=== PATIENT | female | born 1980 | race Two or more races ===

== ENCOUNTER 2020-10-06 18:48 | Inpatient (IN) | payer MEDICAID ==
[~2020-10-06] VITALS: Ht 167.6 cm; Wt 122.1 kg
[2020-10-06] MEDS ORDERED: hydrALAzine 20 MG/ML, 1ML IVPush PRN (22:30)
[2020-10-06] MEDS ORDERED: LACTATED RINGERS 1,000 ML IV SCH (22:30)
[2020-10-06] MEDS ORDERED: ONDANSETRON 2MG/ML, 2ML IVPush PRN (22:30)
[2020-10-06] MEDS: HEPARIN 5,000 UNITS/ML, 1ML SQ SCH (22:30)
[2020-10-06] MEDS: morphine SULFATE 10 MG/ML, 1ML IVPush PRN (22:58)
[2020-10-06 23:05] VITALS: BP 158/89
[2020-10-07 00:10] VITALS: BP 151/84
[2020-10-07] MEDS ORDERED: LACTATED RINGERS 1,000 ML IV SCH (02:30)
[2020-10-07] MEDS: LACTATED RINGERS 1,000 ML IV SCH ×4 (05:38→17:00)
[2020-10-07] MEDS: HEPARIN 5,000 UNITS/ML, 1ML SQ SCH ×3 (05:39→22:30)
[2020-10-07 06:51] LABS: BASOPHILS % (AUTO) 1 % (0-1); EOSINOPHILS % (AUTO) 0 % (1-7); LYMPHOCYTES % (AUTO) 8 % (22-44); MEAN CORPUSCULAR HEMOGLOBIN 16.5 pg (27.0-34.8); MEAN PLATELET VOLUME 8.5 fL (7.4-10.4); MONOCYTES % (AUTO) 4 % (2-9); NEUTROPHILS % (AUTO) 88 % (42-75); PLATELET COUNT 357 x10^3/uL (130-400); RED BLOOD COUNT 4.99 x10^6/uL (3.82-5.3); RED CELL DISTRIBUTION WIDTH 21.7 % (9.6-15.2)
[2020-10-07 07:04] LABS: ANION GAP 9 mmol/L (5-15); CALCIUM 7.5 mg/dL (8.5-10.1); CHLORIDE 106 mmol/L (98-107); CHOLESTEROL, TOTAL 133 mg/dL (140-239); CREATININE 0.79 mg/dL (0.55-1.02); TRIGLYCERIDES 105 mg/dL (50-200); VLDL CHOLESTEROL 21 mg/dL (0-25)
[2020-10-07 07:13] LABS: HDL CHOL % 25 % (28-40); HDL CHOLESTEROL (DIRECT) 33 mg/dL (40-60); LDL CHOLESTEROL,CALCULATED 79 mg/dL (54-169); LDL/HDL RATIO 2.4 (0.5-3.0)
[2020-10-07 07:41] LABS: MEAN CORPUSCULAR HGB CONC 29.7 g/dL (32.4-35.8)
[2020-10-07 07:42] LABS: ANISOCYTOSIS 1+; HYPOCHROMIA 2+; MICROCYTOSIS 2+
[2020-10-07 07:44] LABS: OVALOCYTES 1+; POLYCHROMASIA 1+
[2020-10-07 07:45] LABS: TEAR DROPS 1+
[2020-10-07 07:46] LABS: SPHEROCYTES 1+
[2020-10-07 07:47] LABS: <PLATELET ESTIMATE> ADEQUATE; <PLT MORPHOLOGY> NORMAL PLT MORPH
[2020-10-07 07:58] VITALS: BP 176/84
[2020-10-07] MEDS: morphine SULFATE 10 MG/ML, 1ML IVPush PRN (09:14)
[2020-10-07] MEDS ORDERED: POTASSIUM CHLORIDE 40 MEQ in SODIUM CHLORIDE 0.9% 500 ML IV ONE (11:00)
[2020-10-07] MEDS ORDERED: MAGNESIUM SULFATE PMX 2GM/50ML 50 ML IV ONE (11:00)
[2020-10-07] MEDS: PIPERACILLIN/TAZO 3.375 GM in DEXTROSE 5% 50 ML IV SCH ×2 (12:26→18:41)
[2020-10-07] MEDS ORDERED: ENALAPRILAT 1.25 MG/ML, 2ML IVPush PRN (13:30)
[2020-10-07] MEDS ORDERED: hydrALAzine 20 MG/ML, 1ML IVPush PRN (13:30)
[2020-10-07] MEDS ORDERED: LABETALOL 5MG/ML, 20ML IVPush PRN (13:30)
[2020-10-07 14:00] VITALS: BP 181/100
[2020-10-07 14:31] LABS: INTERNATIONAL NORMALIZED RATIO 1.12 (0.93-1.1); PROTHROMBIN TIME 11.9 Seconds (9.6-11.5)
[2020-10-07 15:17] VITALS: BP 160/99
[2020-10-07] MEDS ORDERED: OMNIPAQUE 350 MG/ML, 100ML BOTTLE ONE (16:41)
[2020-10-07 19:10] VITALS: BP 145/80
[2020-10-08 00:15] VITALS: BP 132/77
[2020-10-08] MEDS: LACTATED RINGERS 1,000 ML IV SCH ×4 (00:21→19:21)
[2020-10-08] MEDS: morphine SULFATE 10 MG/ML, 1ML IVPush PRN (00:21)
[2020-10-08] MEDS: PIPERACILLIN/TAZO 3.375 GM in DEXTROSE 5% 50 ML IV SCH ×3 (01:30→13:33)
[2020-10-08] MEDS: HEPARIN 5,000 UNITS/ML, 1ML SQ SCH ×2 (05:07→13:32)
[2020-10-08 06:08] LABS: MEAN CORPUSCULAR HEMOGLOBIN 16.8 pg (27.0-34.8); MEAN CORPUSCULAR HGB CONC 30.3 g/dL (32.4-35.8); MEAN PLATELET VOLUME 8.5 fL (7.4-10.4); PLATELET COUNT 298 x10^3/uL (130-400); RED CELL DISTRIBUTION WIDTH 21.8 % (9.6-15.2)
[2020-10-08 06:10] LABS: ALANINE AMINOTRANSFERASE 27 U/L (12-78); ANION GAP 7 mmol/L (5-15); CALCIUM 7.5 mg/dL (8.5-10.1); CHLORIDE 106 mmol/L (98-107)
[2020-10-08 06:13] LABS: ALKALINE PHOSPHATASE 138 U/L (45-117); BILIRUBIN,TOTAL 0.5 mg/dL (0.2-1.0); CREATININE 0.59 mg/dL (0.55-1.02); TOTAL PROTEIN 6.8 g/dL (6.4-8.2)
[2020-10-08 06:37] LABS: MONOS#(MANUAL) 0.28 x10^3/uL (0.3-2.7); MONOS% (MANUAL) 1 % (2-9); SEG#(MANUAL) 27.92 x10^3/uL (1.8-6.8); SEGS% (MANUAL) 99 % (42-75)
[2020-10-08 06:38] LABS: <PLATELET ESTIMATE> ADEQUATE; <PLT MORPHOLOGY> NORMAL PLT MORPH; ANISOCYTOSIS 2+; HYPOCHROMIA 2+; MICROCYTOSIS 2+; POLYCHROMASIA 1+
[2020-10-08] MEDS: IRON SUCROSE COMPLEX 100MG/5ML IV SCH (07:38)
[2020-10-08 09:00] VITALS: BP 121/77
[2020-10-08 15:37] VITALS: BP 137/85
[2020-10-08] MEDS ORDERED: MIDAZOLAM 1 MG/ML, 2ML ONE (16:50)
[2020-10-08] MEDS ORDERED: FENTANYL PF 250 MCG/5ML ONE (16:51)
[2020-10-08] MEDS ORDERED: PROMETHAZINE 25 MG/ML, 1ML IVPush PRN (17:00)
[2020-10-08] MEDS ORDERED: LABETALOL 5MG/ML, 20ML IV PRN (17:00)
[2020-10-08] MEDS ORDERED: ONDANSETRON 2MG/ML, 2ML IVPush PRN (17:00)
[2020-10-08] MEDS ORDERED: FENTANYL PF 100 MCG/2ML IV PRN (17:00)
[2020-10-08] MEDS ORDERED: OXYcodone 5 MG/5 ML ORAL.SOL UDC PO PRN (17:00)
[2020-10-08] MEDS ORDERED: HYDROmorphone 1 MG/ML, 1ML INJ IVPush PRN (17:00)
[2020-10-08] MEDS ORDERED: hydrALAzine 20 MG/ML, 1ML IV PRN (17:00)
[2020-10-08] MEDS ORDERED: EPINEPHRINE 1 MG/ML, 1ML ONE (18:49)
[2020-10-08] MEDS ORDERED: BUPIVACAINE/PF 0.5% ONE (18:49)
[2020-10-08] MEDS ORDERED: SUCCINYLCHOLINE 20 MG/ML, 10ML ONE (19:09)
[2020-10-08] MEDS ORDERED: PROPOFOL 10 MG/ML, 20ML ONE (19:09)
[2020-10-08] MEDS ORDERED: DEXAMETHASONE 4 MG/ML, 5ML ONE (19:09)
[2020-10-08] MEDS ORDERED: CEFOTETAN 2 GM ONE (19:09)
[2020-10-08] MEDS ORDERED: OMNIPAQUE 350 MG/ML, 50 ML BOTTLE ONE (19:35)
[2020-10-08] MEDS ORDERED: ROCURONIUM 10MG/ML,5ML ONE (19:40)
[2020-10-08] MEDS ORDERED: ONDANSETRON 2MG/ML, 2ML ONE (19:40)
[2020-10-08] MEDS ORDERED: KETOROLAC 30 MG/1 ML ONE (20:15)
[2020-10-08] MEDS ORDERED: FENTANYL PF 100 MCG/2ML ONE (21:50)
[2020-10-08 23:15] VITALS: BP 138/79
[2020-10-09] VITALS (7 sets, daily range): BP systolic 112–134; BP diastolic 73–84
[2020-10-09] MEDS: PIPERACILLIN/TAZO 3.375 GM in DEXTROSE 5% 50 ML IV SCH ×4 (02:11→21:23)
[2020-10-09] MEDS ORDERED: ONDANSETRON 2MG/ML, 2ML IVPush PRN ×2 (02:30→08:30)
[2020-10-09] MEDS ORDERED: FENTANYL PF 100 MCG/2ML IVPush PRN (02:30)
[2020-10-09] MEDS: LACTATED RINGERS 1,000 ML IV SCH ×2 (03:03→19:30)
[2020-10-09] MEDS: HEPARIN 5,000 UNITS/ML, 1ML SQ SCH ×3 (03:03→21:24)
[2020-10-09 04:56] LABS: MEAN CORPUSCULAR HEMOGLOBIN 17.7 pg (27.0-34.8); MEAN CORPUSCULAR HGB CONC 30.7 g/dL (32.4-35.8); MEAN PLATELET VOLUME 8.8 fL (7.4-10.4); PLATELET COUNT 272 x10^3/uL (130-400); RED BLOOD COUNT 4.13 x10^6/uL (3.82-5.3); RED CELL DISTRIBUTION WIDTH 22.4 % (9.6-15.2)
[2020-10-09 05:04] LABS: ALBUMIN 1.9 g/dL (3.4-5.0); ANION GAP 5 mmol/L (5-15); CALCIUM 7.7 mg/dL (8.5-10.1); CHLORIDE 108 mmol/L (98-107); CREATININE 0.67 mg/dL (0.55-1.02)
[2020-10-09 05:39] LABS: ANISOCYTOSIS 2+; LYMPH#(MANUAL) 1.01 x10^3/uL (1-3.4); LYMPHS% (MANUAL) 4 % (22-44); MICROCYTOSIS 2+; MONOS#(MANUAL) 1.01 x10^3/uL (0.3-2.7); MONOS% (MANUAL) 4 % (2-9); SEG#(MANUAL) 23.18 x10^3/uL (1.8-6.8); SEGS% (MANUAL) 92 % (42-75)
[2020-10-09 05:40] LABS: HYPOCHROMIA 2+; POLYCHROMASIA 1+
[2020-10-09 05:43] LABS: OVALOCYTES 1+; TARGET CELLS 1+; TEAR DROPS 1+
[2020-10-09 05:44] LABS: <PLATELET ESTIMATE> ADEQUATE; <PLT MORPHOLOGY> NORMAL PLT MORPH; SCHISTOCYTES 1+
[2020-10-09] MEDS: morphine SULFATE 10 MG/ML, 1ML IVPush PRN (06:09)
[2020-10-09] MEDS ORDERED: OMNIPAQUE 350 MG/ML, 50 ML BOTTLE ONE (07:06)
[2020-10-09] MEDS ORDERED: LIDOCAINE 1%, 20ML ONE (07:45)
[2020-10-09] MEDS ORDERED: FENTANYL PF 100 MCG/2ML ONE (07:46)
[2020-10-09] MEDS ORDERED: NEOSTIGMINE 1 MG/ML, 10ML ONE (08:14)
[2020-10-09] MEDS ORDERED: ROCURONIUM 10MG/ML,5ML ONE (08:14)
[2020-10-09] MEDS ORDERED: SUCCINYLCHOLINE 20 MG/ML, 10ML ONE (08:14)
[2020-10-09] MEDS ORDERED: ALBUTEROL HFA 90 MCG/SPRAY ONE (08:14)
[2020-10-09] MEDS ORDERED: PROPOFOL 10 MG/ML, 20ML ONE (08:14)
[2020-10-09] MEDS ORDERED: CEFAZOLIN 1,000 MG ONE (08:14)
[2020-10-09] MEDS ORDERED: ONDANSETRON 2MG/ML, 2ML ONE (08:14)
[2020-10-09] MEDS ORDERED: GLYCOPYRROLATE 0.2MG/1ML, 5ML ONE (08:14)
[2020-10-09] MEDS ORDERED: OXYcodone 5 MG/5 ML ORAL.SOL UDC PO PRN (08:30)
[2020-10-09] MEDS ORDERED: METHOCARBAMOL 1,000 MG in DEXTROSE 5% 100 ML IV PRN (08:30)
[2020-10-09] MEDS ORDERED: ALBUTEROL/IPRATROPIUM 2.5MG/0.5MG, 3 ML NPPB PRN (08:30)
[2020-10-09] MEDS ORDERED: LABETALOL 5MG/ML, 20ML IV PRN (08:30)
[2020-10-09] MEDS ORDERED: PROMETHAZINE 25 MG SUPP PR PRN (08:30)
[2020-10-09] MEDS ORDERED: hydrALAzine 20 MG/ML, 1ML IV PRN (08:30)
[2020-10-09] MEDS ORDERED: ACETAMINOPHEN 325 MG TABLET PO PRN ×2 (08:30→10:30)
[2020-10-09] MEDS ORDERED: HYDROmorphone 1 MG/ML, 1ML INJ IVPush PRN (08:30)
[2020-10-09] MEDS ORDERED: PROMETHAZINE 25 MG/ML, 1ML IVPush PRN (08:30)
[2020-10-09] MEDS ORDERED: LORazepam 2 MG/ML, 1ML IVPush PRN (08:30)
[2020-10-09] MEDS ORDERED: FENTANYL PF 100 MCG/2ML IV PRN (08:30)
[2020-10-09] MEDS ORDERED: MEPERIDINE/PF 25MG/0.5ML IVPush PRN (08:30)
[2020-10-09] MEDS ORDERED: METOPROLOL 1 MG/ML, 5ML IV PRN (08:30)
[2020-10-09] MEDS: IRON SUCROSE COMPLEX 100MG/5ML IV SCH (09:18)
[2020-10-09] MEDS: HYDROcodone/APAP 5/325 TABLET PO PRN (16:01)
[2020-10-10] VITALS (7 sets, daily range): BP systolic 122–148; BP diastolic 69–93
[2020-10-10] MEDS: PIPERACILLIN/TAZO 3.375 GM in DEXTROSE 5% 50 ML IV SCH ×2 (03:37→09:54)
[2020-10-10 05:32] LABS: MEAN CORPUSCULAR HEMOGLOBIN 18.7 pg (27.0-34.8); MEAN CORPUSCULAR HGB CONC 31.2 g/dL (32.4-35.8); MEAN PLATELET VOLUME 8.9 fL (7.4-10.4); PLATELET COUNT 259 x10^3/uL (130-400); RED BLOOD COUNT 3.88 x10^6/uL (3.82-5.3); RED CELL DISTRIBUTION WIDTH 27.7 % (9.6-15.2)
[2020-10-10 05:38] LABS: CHLORIDE 107 mmol/L (98-107)
[2020-10-10 05:49] LABS: ALANINE AMINOTRANSFERASE 38 U/L (12-78); ALBUMIN 1.7 g/dL (3.4-5.0); ALKALINE PHOSPHATASE 169 U/L (45-117); ANION GAP 5 mmol/L (5-15); BILIRUBIN,TOTAL 0.4 mg/dL (0.2-1.0); CALCIUM 7.6 mg/dL (8.5-10.1); CREATININE 0.64 mg/dL (0.55-1.02); TOTAL PROTEIN 6.4 g/dL (6.4-8.2)
[2020-10-10 06:11] LABS: LYMPH#(MANUAL) 0.48 x10^3/uL (1-3.4); LYMPHS% (MANUAL) 3 % (22-44); MONOS#(MANUAL) 0.48 x10^3/uL (0.3-2.7); MONOS% (MANUAL) 3 % (2-9); SEG#(MANUAL) 14.95 x10^3/uL (1.8-6.8); SEGS% (MANUAL) 94 % (42-75)
[2020-10-10 06:12] LABS: ANISOCYTOSIS 2+; HYPOCHROMIA 2+; MICROCYTOSIS 2+; OVALOCYTES 1+; POLYCHROMASIA 1+; TEAR DROPS 1+
[2020-10-10 06:13] LABS: <PLATELET ESTIMATE> ADEQUATE; <PLT MORPHOLOGY> NORMAL PLT MORPH
[2020-10-10] MEDS: HEPARIN 5,000 UNITS/ML, 1ML SQ SCH (06:39)
[2020-10-10] MEDS: HYDROcodone/APAP 5/325 TABLET PO PRN ×2 (06:39→13:07)
[2020-10-10] MEDS: IRON SUCROSE COMPLEX 100MG/5ML IV SCH (08:55)
[2020-10-10] MEDS: LACTATED RINGERS 1,000 ML IV SCH (08:55)
[2020-10-10] MEDS ORDERED: HYDR-2214 PO (10:42)
== END 2020-10-10 13:44 | disposition home or self-care (01) | DRG 263 ==
LOC: 3N 21:43 → 4NE 10-08 21:34
PROVIDERS: ADMIT Family Medicine; ATTEND Family Medicine
PROC: BF131ZZ Fluoroscopy of Gallbladder and Bile Ducts using Low Osmolar Contrast (ICD-10-PCS; 2020-10-08)
PROC: 30233N1 Transfusion of Nonautologous Red Blood Cells into Peripheral Vein, Percutaneous Approach (ICD-10-PCS; 2020-10-08)
PROC: 0FT44ZZ Resection of Gallbladder, Percutaneous Endoscopic Approach (ICD-10-PCS; principal; 2020-10-08 19:15)
PROC: 0FC98ZZ Extirpation of Matter from Common Bile Duct, Via Natural or Artificial Opening Endoscopic (ICD-10-PCS; 2020-10-09)
PROC: BF131ZZ Fluoroscopy of Gallbladder and Bile Ducts using Low Osmolar Contrast (ICD-10-PCS; 2020-10-09)
DX: K80.62 Calculus of gallbladder and bile duct with acute cholecystitis without obstruction (principal); K85.10 Biliary acute pancreatitis without necrosis or infection; D50.0 Iron deficiency anemia secondary to blood loss (chronic); E66.01 Morbid (severe) obesity due to excess calories; E83.42 Hypomagnesemia; E87.6 Hypokalemia; I10 Essential (primary) hypertension; Z20.822 Contact with and (suspected) exposure to COVID-19; R74.01 Elevation of levels of liver transaminase levels; Z68.41 Body mass index [BMI] 40.0-44.9, adult; Z82.49 Family history of ischemic heart disease and other diseases of the circulatory system; Z83.3 Family history of diabetes mellitus
CPT/HCPCS: 36415; 74300; 74328; J3490; S0020; 74174; 80048; 80053; 80061; 80069; 82728; 83036; 83540; 83550; 83690; 83735; 84100; 84443; 84703; 85014; 85018; 85025; 85610; 85730; 86850; 86900; 86923; 87040; 87635; 88304; 93005; G0378; J0171; J0690; J1100; J1644; J1756; J1885; J2250; J2405; J2543; J2704; J2710; J3010; J3480; Q9967; C1769; J0330; J0360; J2270; J3475; J7040; J7120; P9016